=== PATIENT | female | born 1955 ===

== ENCOUNTER 2020-03-01 10:44 | Emergency (ER) | payer OTHER, SELFPAY ==
[2020-03-02 12:33] LABS: SARS-CoV-2 MS2 Positive; SARS-CoV-2 N Gene Negative; SARS-CoV-2 S Gene Negative; SARS-CoV-2 orf1ab Negative
== END 2020-03-01 11:02 | disposition home or self-care (01) ==
LOC: ERS 10:44
DX: Z20.828 Contact with and (suspected) exposure to other viral communicable diseases (principal)
CPT/HCPCS: 87635; 99283; U0003